=== PATIENT | male | born 1975 | race Caucasian/White ===

== ENCOUNTER 2016-10-05 19:41 | Inpatient (IN) | payer SELFPAY ==
[~2016-10-05] VITALS: Ht 185.4 cm; Wt 108.8 kg
[2016-10-05 19:42] VITALS: BP 123/75; PULSE 82; RESP 22; O2SAT 96
[2016-10-05 19:52] VITALS: BP 135/74; PULSE 94; RESP 18; TEMP 98.2; O2SAT 98
[2016-10-05] MEDS ORDERED: LACTATED RINGER'S 1000 ML INJ 1,000 ML IV SCH (19:53)
[2016-10-05 19:58] VITALS: O2SAT 97
[2016-10-05] MEDS ORDERED: DIPHTH/TETANUS/ACEL PERTUSSIS (BOOSTER) 0.5 ML VIAL/PFS IM ONE (20:00)
[2016-10-05] MEDS ORDERED: ONDANSETRON HCL 4 MG/2 ML VIAL IVP ONE (20:00)
[2016-10-05] MEDS ORDERED: ceFAZolin 2 GM PREMIX 50 ML IV ONE (20:00)
[2016-10-05] MEDS ORDERED: SODIUM CHLORIDE 0.9% FLUSH 10 ML FLUSH IVF PRN ×2 (20:00→22:00)
[2016-10-05] MEDS ORDERED: MORPHINE SULFATE 4 MG/ML INJ IV ONE (20:00)
--- NOTE | 2016-10-05 20:09 | PD ---
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 Patient reports that he landed on the parking block hitting the left side of his head and face. Patient complains of severe pain, 10/10, in the left temporal bone and skin facial bone area. Patient states he has pain with talking. Patient also complains of anterior chest wall pain and upper back pain. Patient states that he has had no alcohol to drink. Patient denies any chronic medical problems. Patient states he takes no medications on a daily basis. Patient has remote history of appendectomy. Patient does not know his tetanus status. Patient continues to complain of ongoing head pain. Patient's had no nausea or vomiting. Patient states that he is having difficulty seeing out of his left eye. Patient states that he does not wear corrective eyewear. Patient has left -sided neck pain but no posterior neck pain. Patient denies any abdominal pain. Patient denies any arm or leg numbness tingling or weakness. Patient does not report any history of preceding chest pain or shortness of breath prior to his fainting episode. It is unknown if he had any seizure activity although this was not reported by bystanders. Patient presents to the emergency department on long without bystanders/witnesses to provide further history. [facility] Past Medical History Narrative Medical Negative past medical history; appendectomy; tobacco use; nursing notes reviewed Diabetes: No Diminished Hearing: No Gastrointestinal Disorders: No Headaches: Yes Implanted Vascular Access Dvce: No Immunizations Current: Yes Migraines: Yes Ulcer: Yes (2000 GI BLEED) Past Surgical History Appendectomy: Yes Neurologic Surgery: No Other Surgery: No Social History Alcohol Use: Yes (Appx 16 beers daily) Tobacco Use: Yes (1 PPD) Substance Use: Yes (Marijuana, Cocaine, Synthetic Opiates) Allergies-Medications (Allergen,Severity, Reaction): Coded Allergies: No Known Allergies (Verified , 10/05/16) Comments Denies allergies to medications Reported Meds & Prescriptions Reported Meds & Active Scripts Active No Active Prescriptions or Reported Medications Narrative Medication Denies medication use Review of Systems Except as stated in HPI: all other systems reviewed are Neg General / Constitutional: No: Fever, Chills Eyes: Positive: Blurred Vision (left eye), Visual changes (affecting left eye) , No: Diploplia HENT: Positive: Headaches, Neck Pain Cardiovascular: Positive: Chest Pain or Discomfort Respiratory: No: Shortness of Breath Gastrointestinal: Positive: Abdominal Pain (left upper abdominal wall pain), No: Nausea, Vomiting Genitourinary: No: Pelvic Pain Musculoskeletal: No: Myalgias, Arthralgias, Weakness, Cramping, Pain Skin: No Rash Neurologic: Positive: Dizziness, Syncope, Headache, No: Weakness, Focal Abnormalities, Coordination Problem, Change in Mentation, Slurred Speech, Paresthesia, Seizures Psychiatric: No: Anxiety Hematologic/Lymphatic: No: Easy Bruising Physical Exam Narrative GENERAL: Well-developed well-nourished male in obvious discomfort moaning and yelling out holding his head stating that he has broken a bone in his skull or jaw. GCS 15. SKIN: Warm and dry. HEAD: Atraumatic. Normocephalic. Superficial abrasion to the left temporal region with tenderness to palpation and soft tissue swelling is noted. EYES: Pupils equal and round. No scleral icterus. No injection or drainage. Extraocular muscles are intact. No periorbital rim bony step-off or crepitus. ENT: No nasal bleeding or discharge. Mucous membranes pink and moist. Airway is patent. No malocclusion noted. NECK: Trachea midline. No JVD. Tender to palpation along the left posterior neck but no bony step-off or tenderness to palpation along the midline. CARDIOVASCULAR: Regular rate and rhythm. Chest wall left anterior chest wall mild tenderness to palpation without ecchymosis abrasion bony point tenderness or crepitus otherwise nontender. RESPIRATORY: No accessory muscle use. Clear to auscultation. Breath sounds equal bilaterally. GASTROINTESTINAL: Abdomen soft, non-tender, nondistended. Hepatic and splenic margins not palpable. MUSCULOSKELETAL: Extremities without clubbing, cyanosis, or edema. No obvious deformities. NEUROLOGICAL: Awake and alert. No obvious cranial nerve deficits except for complaint of blurriness affecting the left eye. Motor grossly within normal limits. Five out of 5 muscle strength in the arms and legs. Normal speech. PSYCHIATRIC: Appropriate mood and affect; insight and judgment normal. Data Data Last Documented VS Vital Signs Date Time Temp Pulse Resp B/P Pulse Ox O2 Delivery O2 Flow Rate FiO2 10/05/16 19:58 97 Room Air 10/05/16 19:52 98.2 94 18 135/74 Orders I-Stat Profile (10/05/16 19:53) I-Stat Creatinine (10/05/16 19:53) Complete Blood Count With Diff (10/05/16 19:53) Prothrombin Time / Inr (Pt) (10/05/16 19:53) Act Partial Throm Time (Ptt) (10/05/16 19:53) Type And Screen (10/05/16 19:53) Chest, Single Ap (10/05/16 19:53) Ct Brain W/O Iv Contrast(Rout) (10/05/16 19:53) Ct Cerv Spine W/O Contrast (10/05/16 19:53) Ct Abd/Pel W Iv Contrast(Rout) (10/05/16 19:53) Ct Thorax/ Chest W Iv Contrast (10/05/16 19:53) Ct Facial Bones W/O Iv Cont (10/05/16 19:53) Apply Cervical Collar (10/05/16 19:53) Iv Access Insert/Monitor (10/05/16 19:53) Ecg Monitoring (10/05/16 19:53) Oximetry (10/05/16 19:53) Oxygen Administration (10/05/16 19:53) Cefazolin 2 Gm Premix (Ancef 2 Gm Premix (10/05/16 20:00) Morphine Inj (Morphine Inj) (10/05/16 20:00) Ondansetron Inj (Zofran Inj) (10/05/16 20:00) Yrev-Axh-Yfkaeq (Booster) Inj (Boostrix (10/05/16 20:00) Lactated Ringer's 1000 Ml Inj (Lr 1000 M (10/05/16 19:53) Sodium Chloride 0.9% Flush (Ns Flush) (10/05/16 20:00) Electrocardiogram (10/05/16 ) Magnesium (Mg) (10/05/16 19:53) NPO (10/05/16 19:53) Alcohol (Ethanol) (10/05/16 19:53) Troponin I (10/05/16 20:37) Iohexol 350 Inj (Omnipaque 350 Inj) (10/05/16 20:51) Proparacaine 0.5% Opth Soln (Alcaine 0.5 (10/05/16 21:15) Labs Laboratory Tests Test 10/05/16 19:55 White Blood Count 11.6 TH/MM3 Red Blood Count 4.77 MIL/MM3 Hemoglobin 15.2 GM/DL Bedside Hemoglobin 15.3 G/DL Hematocrit 44.3 % Bedside Hematocrit 45.0 % Mean Corpuscular Volume 92.9 FL Mean Corpuscular Hemoglobin 32.0 PG Mean Corpuscular Hemoglobin 34.4 % Concent Red Cell Distribution Width 13.5 % Platelet Count 290 TH/MM3 Mean Platelet Volume 9.1 FL Neutrophils (%) (Auto) 61.5 % Lymphocytes (%) (Auto) 22.5 % Monocytes (%) (Auto) 6.4 % Eosinophils (%) (Auto) 9.1 % Basophils (%) (Auto) 0.5 % Neutrophils # (Auto) 7.1 TH/MM3 Lymphocytes # (Auto) 2.6 TH/MM3 Monocytes # (Auto) 0.7 TH/MM3 Eosinophils # (Auto) 1.1 TH/MM3 Basophils # (Auto) 0.1 TH/MM3 CBC Comment DIFF FINAL Differential Comment Prothrombin Time 10.2 SEC Prothromb Time International 0.9 RATIO Ratio Activated Partial 26.5 SEC Thromboplast Time Bedside Sodium 142 MMOL/L Bedside Potassium 4.5 MMOL/L Bedside Chloride 105 MMOL/L Bedside Blood Urea Nitrogen 15 MG/DL Bedside Creatinine 1.0 MG/DL Bedside Glucose 102 MG/DL Magnesium Level 2.5 MG/DL Ethyl Alcohol Level 141 MG/DL Blood Type O POSITIVE Antibody Screen NEGATIVE Blood Bank Comment [facility] Medical Decision Making Medical Screen Exam Complete: Yes Emergency Medical Condition: Yes Medical Record Reviewed: Yes Interpretation(s) EKG: Normal sinus rhythm rate [address] elevation or injury pattern change or ectopy noted I-STAT: Sodium 142; potassium 4.5; chloride 105: BUN 15/creatinine 1.0; glucose 142; hemoglobin 15.3/hematocrit 45% cxr: CONCLUSION: No acute abnormality demonstrated. Jr Colby MD on October 05, 2016 at 20:13 Board Certified Radiologist. This report was verified electronically. Differential Diagnosis Syncope, near-syncope, arrhythmia, ACS, [place], chest wall contusion, intrathoracic injury, skull fracture, ICH/epidural hematoma, cervical spine sprain strain contusion fracture cord injury, intra-abdominal visceral injury, alcohol ingestion Narrative Course Cervical collar applied patient placed on court monitor IV access obtained specimens collected and sent for resulting imaging studies ordered, GCS 15; EKG performed sinus rhythm rate of [address] elevation or injury pattern change noted; patient administered IV fluids along with tetanus status update and Zofran 4 mg IV along with morphine sulfate 4 mg IV for complaint of head pain jaw pain and neck pain. Chest x-ray performed no obvious displaced rib fracture pneumothorax or effusion also no contusion identified; patient has gone to CT for imaging. @ 20:47 patient has returned from CT; GCS 15, pain 8/10. Bilateral pupils equal round reactive to light extraocular muscles intact no fluorescein uptake no noted foreign body; visual acuity pending; discussed with Dr Stovall no need for trauma service; discussed with Dr Ivan will take to OR in the AM; call placed to [facility] service Physician Communication Physician Communication discussed with Dr Stovall; discussed with Dr Ivan clear liquid diet til MN npo after [place] OR in the AM; call placed to [facility] Diagnosis Primary Impression: Zygomatic fracture, left side, initial encounter for closed fracture Additional Impressions: Syncope Alcohol use Admitting Information Admitting Physician Requests: Admit Scripts No Active Prescriptions or Reported Meds Marilee Guerra MD Oct 05, 2016 20:09
[2016-10-05 20:10] LABS: I-STAT POTASSIUM 4.5 MMOL/L (3.5-4.9)
[2016-10-05 20:16] LABS: AUTOMATED NEUTROPHIL # 7.1 TH/MM3 (1.8-7.7); BASOPHIL # 0.1 TH/MM3 (0-0.2); BASOPHIL % 0.5 % (0.0-2.0); EOSINOPHIL # 1.1 TH/MM3 (0-0.4); EOSINOPHIL % 9.1 % (0.0-4.0); HEMATOCRIT 44.3 % (39.0-51.0); HEMO FLAGS DIFF FINAL; LYMPH % 22.5 % (9.0-44.0); LYMPHOCYTE # 2.6 TH/MM3 (1.0-4.8); MEAN CELL VOLUME 92.9 FL (80.0-100.0); MEAN CORPUSCULAR HGB CONC 34.4 % (32.0-36.0); MONO % 6.4 % (0.0-8.0); NEUT % 61.5 % (16.0-70.0); PLATELET COUNT 290 TH/MM3 (150-450); RED BLOOD COUNT 4.77 MIL/MM3 (4.50-5.90); RED CELL DISTRIBUTION WIDTH 13.5 % (11.6-17.2); WHITE BLOOD COUNT 11.6 TH/MM3 (4.0-11.0)
--- NOTE | 2016-10-05 20:17 | RADRPT ---
EXAM DATE/TIME: 10/05/2016 19:53 [facility] COMPARISON: No previous studies available for comparison. INDICATIONS : Chest pain. MEDICAL HISTORY : None. SURGICAL HISTORY : None. ENCOUNTER: Initial ACUITY: 1 day PAIN SCORE: 8/10 LOCATION: Bilateral chest FINDINGS: A single view of the chest demonstrates the lungs to be symmetrically aerated without evidence of mas s, infiltrate or effusion. The cardiomediastinal contours are unremarkable. Osseous structures are intact. CONCLUSION: No acute abnormality demonstrated. Jr Colby MD on October 05, 2016 at 20:13 Board Certified Radiologist. This report was verified electronically.
[2016-10-05 20:22] LABS: APTT (PATIENT) 26.5 SEC (24.3-30.1); INTERNATIONAL NORMALIZED RATIO 0.9 RATIO; PROTHROMBIN TIME - PATIENT 10.2 SEC (9.8-11.6)
[2016-10-05 20:31] LABS: MAGNESIUM 2.5 MG/DL (1.5-2.5)
--- NOTE | 2016-10-05 20:43 | RADRPT ---
EXAM DATE/TIME: 10/05/2016 20:22 [facility] COMPARISON: CT BRAIN W/O CONTRAST, September 16, 2013, 23:59. INDICATIONS : Trauma. Fall. left sided head pain. RADIATION DOSE: 66.57 CTDIvol (mGy) MEDICAL HISTORY : C7 fracture SURGICAL HISTORY : Appendectomy. ENCOUNTER: Initial ACUITY: 1 day PAIN SCALE: 10/10 LOCATION: Left cranial TECHNIQUE: Multiple contiguous axial images were obtained of the head. Using automated exposure control and adj ustment of the mA and/or kV according to patient size, radiation dose was kept as low as reasonably a chievable to obtain optimal diagnostic quality images. FINDINGS: CEREBRUM: The ventricles are normal for age. No evidence of midline shift, mass lesion, hemorrhage or acute in farction. No extra-axial fluid collections are seen. POSTERIOR FOSSA: The cerebellum and brainstem are intact. The 4th ventricle is midline. The cerebellopontine angle i s unremarkable. EXTRACRANIAL: The visualized portion of the orbits is intact. SKULL: The calvaria is intact. No evidence of skull fracture. CONCLUSION: Negative noncontrast head CT. Jr Colby MD on October 05, 2016 at 20:39 Board Certified Radiologist. This report was verified electronically.
--- NOTE | 2016-10-05 20:46 | RADRPT ---
EXAM DATE/TIME: 10/05/2016 20:22 [facility] COMPARISON: CT FACIAL BONES W/O CONTRAST, September 16, 2013, 23:59. INDICATIONS : Trauma. Fall. Left facial pain. RADIATION DOSE: 65.12 CTDIvol (mGy) MEDICAL HISTORY : C7 fracture, ETOH and substance abuse SURGICAL HISTORY : Appendectomy. ENCOUNTER: Initial ACUITY: 1 day PAIN SCORE: 8/10 LOCATION: facial TECHNIQUE: Volumetric scanning of the facial bones was performed. Using automated exposure control and adjustme nt of the mA and/or kV according to patient size, radiation dose was kept as low as reasonably achiev able to obtain optimal diagnostic quality images. FINDINGS: Acute comminuted fractures seen of the left zygomatic arch. There is buckling and associated 7 mm of depression of the midportion; as a result, the zygomatic arch focally contacts the ramus of the adjac ent left side of the mandible, series 7 image 33. The mandible is intact and non-subluxed. Other facial bones are intact. There is old, healed fracturing of the nose, displaced to the right. N o blood seen in the paranasal sinuses. CONCLUSION: Comminuted and buckled/depressed acute fracture of the left zygomatic arch as described above. Jr Colby MD on October 05, 2016 at 20:40 Board Certified Radiologist. This report was verified electronically.
--- NOTE | 2016-10-05 20:50 | RADRPT ---
EXAM DATE/TIME: 10/05/2016 20:22 [facility] COMPARISON: CT CERVICAL SPINE W/O CONTRAST, September 16, 2013, 23:59. INDICATIONS : Trauma; fall. RADIATION DOSE: 25.14 CTDIvol (mGy) MEDICAL HISTORY : ETOH and substance abuse; prior C 7 fracture SURGICAL HISTORY : None. ENCOUNTER: Initial ACUITY: 1 day PAIN SCALE: 5/10 LOCATION: neck TECHNIQUE: Volumetric scanning of the cervical spine was performed. Multiplanar reconstructions in the sagittal, coronal and oblique axial planes were performed. Using automated exposure control and adjustment o f the mA and/or kV according to patient size, radiation dose was kept as low as reasonably achievable to obtain optimal diagnostic quality images. FINDINGS: VERTEBRAE: Normal vertebral body height. ALIGNMENT: No evidence of subluxation. C2-C3: The bony spinal canal is normal in size. No evidence of disc bulge or herniation. The neural forami na are bilaterally patent. C3-C4: The bony spinal canal is normal in size. No evidence of disc bulge or herniation. The neural forami na are bilaterally patent. C4-C5: The bony spinal canal is normal in size. No evidence of disc bulge or herniation. The neural forami na are bilaterally patent. C5-C6: The bony spinal canal is normal in size. No evidence of disc bulge or herniation. The neural forami na are bilaterally patent. C6-C7: The bony spinal canal is normal in size. No evidence of disc bulge or herniation. The neural forami na are bilaterally patent. C7-T1: The bony spinal canal is normal in size. No evidence of disc bulge or herniation. The neural forami na are bilaterally patent. CONCLUSION: No fracture, subluxation or other acute abnormality seen of the cervical spine. Jr Colby MD on October 05, 2016 at 20:46 Board Certified Radiologist. This report was verified electronically.
[2016-10-05] MEDS ORDERED: IOHEXOL 350 MG/ML 10 ML VIAL (for RAD DIAG) IV ONE (20:51)
--- NOTE | 2016-10-05 20:57 | RADRPT ---
EXAM DATE/TIME: 10/05/2016 20:29 [facility] COMPARISON: No previous studies available for comparison. INDICATIONS : Trauma; fall IV CONTRAST: 96 cc Omnipaque 350 (iohexol) IV RADIATION DOSE: 19.57 CTDIvol (mGy) ; Combined studies - Thorax/Abdomen/Pelvis MEDICAL HISTORY : ETOH and substance abuse SURGICAL HISTORY : Appendectomy. ENCOUNTER: Initial ACUITY: 1 day PAIN SCALE: 5/10 LOCATION: chest TECHNIQUE: Volumetric scanning of the chest was performed. Using automated exposure control and adjustment of t he mA and/or kV according to patient size, radiation dose was kept as low as reasonably achievable to obtain optimal diagnostic quality images. FINDINGS: LUNGS: There is no consolidation or pneumothorax. No concerning pulmonary nodule is visualized. PLEURA: There is no pleural thickening or pleural effusion. MEDIASTINUM: The heart and great vessels demonstrate no acute abnormality. There is no mediastinal or hilar lymph adenopathy. AXILLAE: Within normal limits. No lymphadenopathy. SKELETAL: Visualized osseous structures are acutely intact. There is an old fracture posterolaterally of the ri ght 11th rib. MISCELLANEOUS: The visualized upper abdominal organs demonstrate no acute abnormality. CONCLUSION: No acute abnormality. Jr Colby MD on October 05, 2016 at 20:52 Board Certified Radiologist. This report was verified electronically.
--- NOTE | 2016-10-05 20:59 | RADRPT ---
EXAM DATE/TIME: 10/05/2016 20:29 [facility] COMPARISON: No previous studies available for comparison. INDICATIONS : Trauma. Fall. IV CONTRAST: 96 cc Omnipaque 350 (iohexol) IV ; Cumulative dose for multiple exams. ORAL CONTRAST: No oral contrast ingested. RADIATION DOSE: 19.57 CTDIvol (mGy) ; Combined studies - Thorax/Abdomen/Pelvis MEDICAL HISTORY : ETOH abuse C7 fracture SURGICAL HISTORY : Appendectomy. ENCOUNTER: Initial ACUITY: 1 day PAIN SCALE: 0/10 LOCATION: abdomen TECHNIQUE: Volumetric scanning of the abdomen and pelvis was performed. Using automated exposure control and ad justment of the mA and/or kV according to patient size, radiation dose was kept as low as reasonably achievable to obtain optimal diagnostic quality images. FINDINGS: LOWER LUNGS: The visualized lower lungs are clear. LIVER: Homogeneous density without lesion. There is no dilation of the biliary tree. No calcified gallston es. SPLEEN: Normal size without lesion. PANCREAS: Within normal limits. KIDNEYS: 11 mm cyst right upper pole. ADRENAL GLANDS: Within normal limits. VASCULAR: There is no aortic aneurysm. BOWEL/MESENTERY: The stomach, small bowel, and colon demonstrate no acute abnormality. There is no free intraperitone al air or fluid. ABDOMINAL WALL: Within normal limits. RETROPERITONEUM: There is no lymphadenopathy. BLADDER: No wall thickening or mass. REPRODUCTIVE: Within normal limits. INGUINAL: There is no lymphadenopathy or hernia. MUSCULOSKELETAL: Visualized osseous structures are intact. CONCLUSION: No acute abnormality. Jr Colby MD on October 05, 2016 at 20:55 Board Certified Radiologist. This report was verified electronically.
[2016-10-05] MEDS ORDERED: PROPARACAINE HCL 0.5% OPHT SOLN 15 ML BTL LEFT EYE ONE (21:15)
[2016-10-05] MEDS ORDERED: DEXAMETHASONE SOD PHOS 4 MG/ML VIAL IV PUSH ONE (21:45)
[2016-10-05] MEDS ORDERED: MORPHINE SULFATE 4 MG/ML INJ IV PUSH ONE (21:45)
[2016-10-05] MEDS ORDERED: BISACODYL 10 MG SUPP RECTAL PRN (22:00)
[2016-10-05] MEDS ORDERED: SENNOSIDES 8.6 MG TAB PO PRN (22:00)
[2016-10-05] MEDS ORDERED: MAGNESIUM HYDROXIDE SUSP 30 ML CUP PO PRN (22:00)
[2016-10-05] MEDS ORDERED: MORPHINE SULFATE 4 MG/ML INJ IV PRN (22:00)
[2016-10-05] MEDS ORDERED: HALOPERIDOL LACTATE 5 MG/ML AMP IM PRN (22:00)
[2016-10-05] MEDS ORDERED: ACETAMINOPHEN 1000 MG/100 ML VIAL IV PRN (22:00)
[2016-10-05] MEDS ORDERED: LORazepam 2 MG/ML VIAL IV PUSH PRN ×4 (22:00)
[2016-10-05] MEDS ORDERED: LORazepam 1 MG TAB PO PRN (22:00)
[2016-10-05] MEDS ORDERED: LORazepam 2 MG TAB PO PRN (22:00)
[2016-10-05] MEDS ORDERED: FLUMAZENIL 0.5 MG/5 ML VIAL IV PUSH PRN (22:00)
[2016-10-05] MEDS ORDERED: LACTULOSE SYRUP 20 GM/30 ML CUP PO PRN (22:00)
[2016-10-05] MEDS ORDERED: SODIUM CHLORIDE 0.9% FLUSH 10 ML FLUSH IV FLUSH PRN (22:00)
--- NOTE | 2016-10-05 22:03 | HHI.HP ---
[facility] Primary Care Physician Admission Diagnosis L comminuted zygoma fracture; syncope; alcohol use Diagnoses: (1) Syncope Diagnosis: Principal (2) Fall Diagnosis: Principal (3) Facial fracture Diagnosis: Principal (4) Alcohol abuse (5) Tobacco abuse Diagnosis: Principal Travel History International Travel<30 Days: No Contact w/Intl Traveler <30 Da: No Traveled to Known Affected Are: No History of Present Illness This is a 41-year-old male with a PMH of Alcohol Abuse, Tobacco Abuse and Cocaine Abuse was brought to the ER by EMS after syncopal episode with head trauma. Per patient, he was getting into his boss's truck at which time he had sudden onset of dizziness/lightheadedness followed by acute syncopal event, + head injury on parking block. No seizure activity reported. Upon EMS arrival, pt found to be awake and alert. On arrival, BP 135/74, HR 94, O2 sat 98% RA, Afebrile. WBC 11.6. Chemistry unremarkable. Troponin negative. INR 0.9. Alcohol 141. CT Head/C Spine with no acute findings. CT Maxillofacial with comminuted and buccal/depressed acute fracture of the left zygomatic arch. CXR/ CT Chest/Abd/Pelvis w/ no acute findings. Dr. Ivan consulted, plan is for surgical intervention in am. Review of Systems Except as stated in HPI: all other systems reviewed are Neg ROS: 14 point review of systems otherwise negative. Past Family Social History Past Medical History PMH: Alcohol Abuse, Tobacco Abuse and Cocaine Abuse Past Surgical History PAST SURGICAL HISTORY: Appendectomy Allergies: Coded Allergies: No Known Allergies (Verified , 10/05/16) Family History PAST FAMILY HISTORY: Reviewed. No h/o DM or CAD Social History PAST SOCIAL HISTORY: Drinks 16-18 beers/day. Smokes 1ppd. Positive for Opiates, Marijuana and Cocaine. Physical Exam Vital Signs Vital Signs Date Time Temp Pulse Resp B/P Pulse Ox O2 Delivery O2 Flow Rate FiO2 10/05/16 19:58 97 Room Air 10/05/16 19:58 97 Room Air 10/05/16 19:52 98.2 94 18 135/74 98 10/05/16 19:42 82 22 123/75 96 Room Air Physical Exam PE: GENERAL: Middle-aged white male in no acute distress. HEENT: PERRLA, EOMI. No scleral icterus or conjunctival pallor. No lid lag or facial droop. Left facial swelling, significant tenderness with movement of jaw CARDIOVASCULAR: Regular rate and rhythm. No obvious murmurs to auscultation. No chest tenderness to palpation. RESPIRATORY: No obvious rhonchi or wheezing. Clear to auscultation. Breath sounds equal bilaterally. GASTROINTESTINAL: Abdomen soft, non-tender, nondistended. BS normal. MUSCULOSKELETAL: Extremities without clubbing, cyanosis, or edema. No obvious deformities. NEUROLOGICAL: Awake, alert and oriented x4. No focal neurologic deficits. Moving both upper and lower extremities spontaneously. Laboratory Laboratory Tests Test 10/05/16 19:55 White Blood Count 11.6 Red Blood Count 4.77 Hemoglobin 15.2 Bedside Hemoglobin 15.3 Hematocrit 44.3 Bedside Hematocrit 45.0 Mean Corpuscular Volume 92.9 Mean Corpuscular Hemoglobin 32.0 Mean Corpuscular Hemoglobin 34.4 Concent Red Cell Distribution Width 13.5 Platelet Count 290 Mean Platelet Volume 9.1 Neutrophils (%) (Auto) 61.5 Lymphocytes (%) (Auto) 22.5 Monocytes (%) (Auto) 6.4 Eosinophils (%) (Auto) 9.1 Basophils (%) (Auto) 0.5 Neutrophils # (Auto) 7.1 Lymphocytes # (Auto) 2.6 Monocytes # (Auto) 0.7 Eosinophils # (Auto) 1.1 Basophils # (Auto) 0.1 CBC Comment DIFF FINAL Differential Comment Prothrombin Time 10.2 Prothromb Time International 0.9 Ratio Activated Partial 26.5 Thromboplast Time Bedside Sodium 142 Bedside Potassium 4.5 Bedside Chloride 105 Bedside Blood Urea Nitrogen 15 Bedside Creatinine 1.0 Bedside Glucose 102 Magnesium Level 2.5 Ethyl Alcohol Level 141 Blood Type O POSITIVE Antibody Screen NEGATIVE Blood Bank Comment Result Diagram: 10/05/161954 Assessment and Plan Problem List: (1) Syncope ICD Code: R55 Status: Acute (2) Fall ICD Code: W19.XXXA Status: Acute (3) Facial fracture ICD Code: S02.92XA Status: Acute (4) Alcohol abuse ICD Code: F10.10 Status: Acute (5) Tobacco abuse ICD Code: Z72.0 Status: Acute Assessment and Plan A/P: 1. Syncope: Likely secondary to dehydration/alcohol intoxication. IVF for hydration. 2. Fall: secondary to acute syncopal event. +Head trauma, CT Head/C-Spine negative for acute findings, CT Chest/Abd/Pelvis also negative, images reviewed by me. IVF as above. 3. Facial Fx: CT Maxillofacial w/ comminuted/depressed fracture of left zygomatic arch, images reviewed by me, limited ROM of jaw secondary to injury. Dr. Ivan consulted by ER physician, plan is for surgical intervention in am. Clear liquids if tolerated, NPO after midnight, analgesics/antiemetics as needed. 4. Alcohol Abuse: w/ Acute Alcohol Intoxication. Drinks approx 16-18 beers/ day. CIWA, MVT/Thiamine/Folate replacement, Seizure Precautions. 5. Tobacco Abuse: Pt counselled. NicoDerm patch if needed. 6. DVT Prophylaxis: SCD/Teds. 7. Social work for d/c planning as needed. 8. Case discussed w/ ER physician at length. Physician Certification 2 Midnight Certification Type: Admission for Inpatient Services Order for Inpatient Services The services are ordered in accordance with Medicare regulations or non- Medicare payer requirements, as applicable. In the case of services not specified as inpatient-only, they are appropriately provided as inpatient services in accordance with the 2-midnight benchmark. Estimated LOS (days): 2 days is the estimated time the patient will need to remain in the hospital, assuming treatment plan goals are met and no additional complications. Post-Hospital Plan: Not yet determined Jody Mccormack MD Oct 05, 2016 22:03
[2016-10-05] MEDS: MULTIVITAMIN INJ 10 ML, FOLIC ACID INJ 1 MG in SODIUM CHLORID 0.9% 500 ML INJ 500 ML IV SCH (22:29)
[2016-10-05] MEDS: THIAMINE INJ 100 MG in SODIUM CHLORIDE 0.9% INJ 100 ML IV SCH (22:29)
[2016-10-05] MEDS: SODIUM CHLOR 0.9% 1000 ML INJ 1,000 ML IV SCH (22:29)
[2016-10-05 22:46] VITALS: BP 136/67; PULSE 67; RESP 16; O2SAT 98
[2016-10-05 23:15] VITALS: BP 148/69; PULSE 80; RESP 17; TEMP 98.7; O2SAT 95
[2016-10-05] MEDS ORDERED: INSULIN HUMAN REGULAR 1,000 UNITS/10 ML VIAL SQ PRN (23:45)
[2016-10-05] MEDS ORDERED: SODIUM CHLORID 0.9% 500 ML IV PRN (23:45)
[2016-10-05] MEDS ORDERED: METOPROLOL TARTRATE 25 MG TAB PO PRN (23:45)
[2016-10-05] MEDS ORDERED: POVIDONE IODINE 5% (ANTISEPSIS KIT) 4 APPLICATIONS EACH NARE PRN (23:45)
[2016-10-05] MEDS ORDERED: LACTATED RINGER'S 1000 ML IV PRN (23:45)
[2016-10-05] MEDS ORDERED: CHLORHEXIDINE GLUCONATE 2 % 1 PACK (2 CLOTHS) TOPICAL PRN (23:45)
[2016-10-06] MEDS: MORPHINE SULFATE 4 MG/ML INJ IV PRN ×2 (00:55→04:33)
[2016-10-06 04:20] VITALS: BP 133/72; PULSE 62; RESP 17; TEMP 97; O2SAT 98
[2016-10-06 04:53] LABS: AMPHETAMINE, URINE NEG (NEG); BARBITURATES, URINE NEG (NEG); COCAINE, URINE POS (NEG)
[2016-10-06] MEDS: SODIUM CHLOR 0.9% 1000 ML INJ 1,000 ML IV SCH ×2 (07:59→17:59)
[2016-10-06 08:00] VITALS: BP 143/74; PULSE 54; RESP 18; TEMP 95.8; O2SAT 99
[2016-10-06 08:47] VITALS: O2SAT 95
[2016-10-06] MEDS ORDERED: SODIUM CHLORIDE 0.9% FLUSH 10 ML FLUSH IV FLUSH SCH (09:00)
[2016-10-06] MEDS: DOCUSATE SODIUM 50 MG/SENNA 8.6 MG TAB PO SCH ×2 (09:00→20:40)
[2016-10-06] MEDS: SODIUM CHLORIDE 0.9% FLUSH 10 ML FLUSH IV FLUSH SCH ×2 (09:39→20:40)
[2016-10-06] MEDS ORDERED: PROPOFOL 200 MG/20 ML AMP IV ONE (09:47)
[2016-10-06] MEDS ORDERED: KETOROLAC TROMETHAMINE 60 MG/2 ML (IM) VIAL IM ONE (09:47)
[2016-10-06] MEDS ORDERED: ONDANSETRON HCL 4 MG/2 ML VIAL IV PUSH ONE (09:47)
[2016-10-06] MEDS ORDERED: MORPHINE SULFATE 4 MG/ML INJ IV PRN ×2 (10:00)
--- NOTE | 2016-10-06 10:15 | MB ---
cc: ARTEMIO IVAN DMD DATE OF CONSULTATION: 10/06/2016 REASON FOR CONSULTATION: Left zygomatic arch fracture. 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 He reports that he did not drink much fluids the whole day and then in the evening when he was going back to his vehicle, he had a syncopal episode and fell, hit his face on the side of the curb. He was alert, awake, and oriented x3 in no acute distress. He reports pain on the left side of his face. He points to the arch region, difficulty opening and closing his mouth at that point. He denies any neck pain. Denies any headaches. Denies any fever, chills, nausea, vomiting, any shortness of breath, any difficulty breathing. He reports he felt a little bit lightheaded and then he blacked out and then he woke up and was aware of what was happening. SOCIAL HISTORY: Denies alcohol use, tobacco or any illicit drug use, although I did question him based on his previous note, of cocaine and drugs. He denies. PAST SURGICAL HISTORY Appendectomy. ALLERGIES Denied. PHYSICAL EXAMINATION: Vitals: Temperature 95.8, pulse is 54, respiration rate 18, blood pressure 143/74, oxygen saturation of 99%. HEENT: Pupils equal round reactive to light and accommodation. Extraocular movements are intact. There is bruising and tenderness over the left zygomatic arch region. There is a depression that is noted on the left side of the face in that region. Tenderness to palpation. Mild facial edema that is noted on the left greater than the right. No active heme that is noted. I tried to examine intraorally, the patient is having discomfort opening his mouth and not conducive to being able to be examined at this point. Neck: Positive range of movement of the neck. No tenderness noted. The rest of the facial bones nasal bones appear stable. No crepitus. No gross tenderness noted except for the left side of the face arch region, tenderness noted. IMAGING STUDIES: CT scan of the facial bones shows it appears to show a depressed left zygomatic arch fracture impinging on the coronoid process of the left mandible, also appears to have fracture which is on the left side which is not displaced, appears to have an old nasal bone fracture. LABORATORY DATA: White count of 11.6, H&H is 15.2, 44.3 with platelets of 290, PT is 10.2, INR 0.9 with PTT of 26.5, ethyl alcohol is 141, positive use of cocaine and opioids. ASSESSMENT AND PLAN: This is a 41-year-old male status post having a syncopal episode as per the patient working the whole day dehydrated, working in the hot sun, and then lost consciousness momentarily. He has a displaced zygomatic arch fracture, impinging on his coronoid process, severe pain on the left side of the face region of the arch, could be causing involvement of the movement of the mandible. Will plan for open reduction of his left-sided zygomatic arch fracture. Benefits, risks, indication of the procedure, the procedure in detail and the options of no treatment all discussed with this patient. Risks not limited to any postop pain, infection, bleeding, damage to the adjacent soft tissue, hard tissue, anesthesia complications, further surgeries as required. The procedure in detail was also discussed. All questions and concerns were addressed. Also note that on his labs the troponin is less than 0.02. Artemio Ivan DMD HEALTH COACH/DARLEEN /9:17 AM /9:50 AM
--- NOTE | 2016-10-06 10:19 | HHI.PR ---
Subjective Remarks Surgical repair of facial fracture today. Patient reports IV treatments for his pain or not long lasting. We discussed starting by mouth treatments after surgery. Right now he is not taking anything by mouth preop. Objective Vital Signs Date Time Temp Pulse Resp B/P Pulse Ox O2 Delivery O2 Flow Rate FiO2 10/06/16 08:00 95.8 54 18 143/74 99 10/06/16 04:20 97.0 62 17 133/72 98 10/05/16 23:15 98.7 80 17 148/69 95 10/05/16 22:46 67 16 136/67 98 Room Air 10/05/16 19:58 97 Room Air 10/05/16 19:58 97 Room Air 10/05/16 19:52 98.2 94 18 135/74 98 10/05/16 19:42 82 22 123/75 96 Room Air I/O 10/05/16 10/05/16 10/05/16 10/06/16 10/06/16 10/06/16 07:00 15:00 23:00 07:00 15:00 23:00 Intake Total 496 ml Output Total 1000 ml Balance -504 ml Intake Oral 0 ml IV Total 496 ml Output Urine Total 1000 ml # Bowel Movements 0 Result Diagram: 10/05/161954 Imaging Last Impressions Maxillofacial CT 10/05/161952 Signed Impressions: Service Date/Time: Wednesday, October 05, 2016 20:22 - CONCLUSION: Comminuted and buckled/depressed acute fracture of the left zygomatic arch as described above. Jr Colby MD Head CT 10/05/161952 Signed Impressions: Service Date/Time: Wednesday, October 05, 2016 20:22 - CONCLUSION: Negative noncontrast head CT. Jr Colby MD Chest X-Ray 10/05/161952 Signed Impressions: Service Date/Time: Wednesday, October 05, 2016 19:53 - CONCLUSION: No acute abnormality demonstrated. Jr Colby MD Chest CT 10/05/161952 Signed Impressions: Service Date/Time: Wednesday, October 05, 2016 20:29 - CONCLUSION: No acute abnormality. Jr Colby MD Cervical Spine CT 10/05/161952 Signed Impressions: Service Date/Time: Wednesday, October 05, 2016 20:22 - CONCLUSION: No fracture, subluxation or other acute abnormality seen of the cervical spine. Jr Colby MD Abdomen/Pelvis CT 10/05/161952 Signed Impressions: Service Date/Time: Wednesday, October 05, 2016 20:29 - CONCLUSION: No acute abnormality. Jr Colby MD Objective Remarks GENERAL: NAD, A&Ox3 HEAD: Normocephalic. Swelling of left side of face NECK: Supple, trachea midline. No lymphadenopathy. EYES: No scleral icterus. No injection or drainage. CARDIOVASCULAR: Regular rate and rhythm without murmurs, gallops, or rubs. RESPIRATORY: Breath sounds equal bilaterally. No accessory muscle use. GASTROINTESTINAL: Abdomen soft, non-tender, nondistended. MUSCULOSKELETAL: No cyanosis, or edema. SKIN: Warm and dry. NEURO: No focal neurological deficitis. Medications and IVs Administered Medications Medications (Trade) Dose Ordered Sig/Maurice Route PRN Reason Start Time Stop Time Status Last Admin Dose Admin Sodium Chloride (NS 1000 ml Inj) 1,000 ml @ 100 mls/hr Q10H IV 10/05/16 21:59 10/05/16 22:29 Sodium Chloride 2 ml 2 ml BID IV FLUSH 10/06/16 09:00 10/06/16 09:39 Multivitamins 10 ml/Folic Acid 1 mg/Sodium Chloride 510.2 ml @ 125 mls/hr Q24H IV 10/05/16 22:00 10/10/16 21:59 10/05/16 22:29 Thiamine HCl/ Sodium Chloride (Thiamine Inj/NS Inj) 101 ml @ 100 mls/hr Q24H IV 10/05/16 22:00 10/08/16 21:59 10/05/16 22:29 Morphine Sulfate (Morphine Inj) 4 mg Q3H PRN IV Pain 6-10 10/06/16 10:00 10/06/16 09:37 A/P Problem List: (1) Zygomatic fracture, left side, initial encounter for closedfracture ICD Code: S02.40FA (2) Syncope ICD Code: R55 (3) Facial fracture ICD Code: S02.92XA (4) Alcohol abuse ICD Code: F10.10 (5) Tobacco abuse ICD Code: Z72.0 Assessment and Plan Assessment and plan 41-year-old male status post trauma secondary to fall of his left face with zygomatic fracture. Left zygomatic fracture Surgical repair today Oral-maxillofacial surgeon following Continue treatments for pain as needed continue IV hydration Syncope Suspected to be secondary to substance abuse Assessment ambulation instability postop IV hydration Nicotine dependence NicoDerm Alcohol abuse Elizabeth continue Multivitamin Thiamine Folic acid Follow for DTs DVT prophylaxis SCDs secondary to bleed risk Jose Diallo MD Oct 06, 2016 10:19
[2016-10-06 10:23] LABS: AUTOMATED NEUTROPHIL # 5.2 TH/MM3 (1.8-7.7); BASOPHIL % 0.2 % (0.0-2.0); HEMATOCRIT 41.3 % (39.0-51.0); HEMO FLAGS DIFF FINAL; LYMPH % 16.4 % (9.0-44.0); LYMPHOCYTE # 1.1 TH/MM3 (1.0-4.8); MEAN CELL VOLUME 93.6 FL (80.0-100.0); MEAN CORPUSCULAR HEMOGLOBIN 32.1 PG (27.0-34.0); MEAN CORPUSCULAR HGB CONC 34.3 % (32.0-36.0); MONO % 2.6 % (0.0-8.0); NEUT % 80.8 % (16.0-70.0); PLATELET COUNT 229 TH/MM3 (150-450); RED BLOOD COUNT 4.41 MIL/MM3 (4.50-5.90); RED CELL DISTRIBUTION WIDTH 13.4 % (11.6-17.2); WHITE BLOOD COUNT 6.5 TH/MM3 (4.0-11.0)
[2016-10-06 10:49] LABS: ANION GAP 11 MEQ/L (5-15); AST (GOT) 22 U/L (15-37); BICARBONATE 23.1 MEQ/L (21.0-32.0); BLOOD UREA NITROGEN 13 MG/DL (7-18); CHLORIDE 105 MEQ/L (98-107); GLOMERULAR FILTRATION RATE 129 ML/MIN (>89); SODIUM (NA) 139 MEQ/L (136-145)
[2016-10-06 10:50] LABS: ALT (GPT) 36 U/L (12-78)
[2016-10-06 10:53] LABS: ALKALINE PHOSPHATASE 86 U/L (45-117); TOTAL BILIRUBIN ADULT 0.5 MG/DL (0.2-1.0)
[2016-10-06] MEDS: oxyCODONE/ACETAMINOPHEN 10 MG/325 MG TAB PO PRN ×2 (11:48→20:48)
[2016-10-06] MEDS: ONDANSETRON HCL 4 MG/2 ML VIAL IVP PRN ×2 (11:57→20:48)
[2016-10-06 12:00] VITALS: BP 131/78; PULSE 51; RESP 18; TEMP 95.5; O2SAT 98
--- NOTE | 2016-10-06 12:19 | EKG ---
Date Performed: 10/05/2016 Time Performed: 19:57:54 PTAGE: 41 years EKG: Sinus rhythm NORMAL ECG PREVIOUS TRACING : 03/08/2007 03.13 Compared to prior tracing no significant change DOCTOR: Silvano Reed Interpretating Date/Time 10/06/2016 12:17:08
[2016-10-06] MEDS ORDERED: ceFAZolin INJ 1,000 MG VIAL ONE (16:42)
[2016-10-06] MEDS ORDERED: CHLORHEXIDINE GLUCONATE 0.12% 15 ML CUP ONE (16:42)
[2016-10-06] MEDS ORDERED: BUPIVACAINE HCL PF 0.5% 30 ML VIAL ONE (16:42)
[2016-10-06] MEDS ORDERED: LIDOCAINE 2%/EPINEPHrine 1:100,000 30ML MDV ONE (16:46)
[2016-10-06] MEDS ORDERED: BUPIVACAINE/EPINEPHRINE 0.5% PF 30 ML VIAL ONE (17:29)
[2016-10-06] MEDS ORDERED: SUGAMMADEX SODIUM 200 MG/2 ML VIAL IV PUSH ONE ×2 (17:49)
[2016-10-06] MEDS ORDERED: methylPREDNISolone SOD SUCC 125 MG/2 ML VIAL IV ONE (18:00)
--- NOTE | 2016-10-06 18:05 | HHI.PR ---
Immediate Post Op Note Procedure Date: Oct 06, 2016 Pre Op Diagnosis: left zygomatic arch fracture Post Op Diagnosis: taiwo Surgeon: Kyle Ivan Boiler Fitter(s): or staff Procedure: open reduction left zygomatic arch fracture Complications: none Estimated blood loss: minimal Anesthesia: General, Local (2%lidocaine with 1:100,000 epi 3cc; 0.5%marcaine with 1:200, 000 epi approx 2 cc) Drains: None Patient to: PACU Patient Condition: Good Date/Time of Procedure: SEE SURGICAL CARE RECORD Kyle Ivan DMD Oct 06, 2016 18:05
[2016-10-06] MEDS ORDERED: MORPHINE SULFATE 4 MG/ML INJ ONE (18:15)
[2016-10-06] MEDS ORDERED: MIDAZOLAM HCL 2 MG/2 ML VIAL ONE (18:16)
[2016-10-06] MEDS ORDERED: methylPREDNISolone SOD SUCC 125 MG/2 ML VIAL ONE (18:20)
[2016-10-06] MEDS ORDERED: DO NOT ADM ANY ANTICOAGULANT DRUGS PRN (18:45)
[2016-10-06 20:00] VITALS: BP 147/78; PULSE 66; RESP 18; TEMP 96; O2SAT 97
[2016-10-06] MEDS: THIAMINE INJ 100 MG in SODIUM CHLORIDE 0.9% INJ 100 ML IV SCH (20:38)
[2016-10-06] MEDS: MULTIVITAMIN INJ 10 ML, FOLIC ACID INJ 1 MG in SODIUM CHLORID 0.9% 500 ML INJ 500 ML IV SCH (20:39)
[2016-10-06 21:37] VITALS: O2SAT 98
[2016-10-07] VITALS (7 sets, daily range): BP systolic 108–144; BP diastolic 67–88; PULSE 50–59; RESP 14–18; TEMP 95.7–97; O2SAT 97–99
[2016-10-07] MEDS ORDERED: methylPREDNISolone SOD SUCC 125 MG/2 ML VIAL IV ONE
[2016-10-07] MEDS ORDERED: methylPREDNISolone ACETATE 80 MG/ML VIAL IM ONE (01:00)
[2016-10-07] MEDS: SODIUM CHLOR 0.9% 1000 ML INJ 1,000 ML IV SCH ×2 (03:59→13:59)
[2016-10-07] MEDS: ONDANSETRON HCL 4 MG/2 ML VIAL IVP PRN ×2 (05:24→22:08)
[2016-10-07] MEDS: oxyCODONE/ACETAMINOPHEN 10 MG/325 MG TAB PO PRN ×5 (05:24→22:04)
[2016-10-07 06:41] LABS: HEMATOCRIT 39.7 % (39.0-51.0); MEAN CELL VOLUME 93.3 FL (80.0-100.0); MEAN CORPUSCULAR HEMOGLOBIN 32.3 PG (27.0-34.0); MEAN CORPUSCULAR HGB CONC 34.6 % (32.0-36.0); PLATELET COUNT 208 TH/MM3 (150-450); RED BLOOD COUNT 4.25 MIL/MM3 (4.50-5.90); RED CELL DISTRIBUTION WIDTH 12.9 % (11.6-17.2); REVIEW FLAG FINAL; WHITE BLOOD COUNT 10.8 TH/MM3 (4.0-11.0)
[2016-10-07 06:45] LABS: BICARBONATE 24.9 MEQ/L (21.0-32.0); POTASSIUM 4.2 MEQ/L (3.5-5.1)
[2016-10-07] MEDS: SODIUM CHLORIDE 0.9% FLUSH 10 ML FLUSH IV FLUSH SCH ×2 (09:00→20:48)
--- NOTE | 2016-10-07 09:14 | HHI.PR ---
Subjective Remarks This is a pleasant 41 y/o Male with alcohol abuse, Tobacco dependence, Cocaine abuse, brought to ER after episode of syncope and Head trauma, he had sudden onset of dizziness/lightheadedness followed by acute syncopal event, +head injury on parking block. No seizure activity reported. CT Head/C Spine with no acute findings. CT Maxillofacial with comminuted and buccal/depressed acute fracture of the left zygomatic arch. CXR/ CT Chest/Abd/Pelvis w/ no acute findings. Status post ORIF of Left Zygomatic Arch fracture on September with Diagnosis of Left Zygomatic Arch fracture. Continue with Pain and no nausea, vomit or diarrhea. Objective Vital Signs Date Time Temp Pulse Resp B/P Pulse Ox O2 Delivery O2 Flow Rate FiO2 10/07/16 08:00 95.8 50 16 144/83 99 10/07/16 04:00 96.6 53 18 108/67 99 10/07/16 00:00 97.0 52 18 116/69 98 10/06/16 21:37 98 Nasal Cannula 4.00 10/06/16 20:00 96.0 66 18 147/78 97 10/06/16 18:30 98.2 53 14 136/71 100 Nasal Cannula 2 10/06/16 18:15 57 14 158/85 100 Nasal Cannula 3 10/06/16 18:05 98.2 60 14 154/87 100 Nasal Cannula 4 10/06/16 12:00 95.5 51 18 131/78 98 I/O 10/06/16 10/06/16 10/06/16 10/07/16 10/07/16 10/07/16 07:00 15:00 23:00 07:00 15:00 23:00 Intake Total 496 ml 2300 ml 1000 ml Output Total 1000 ml 1210 ml 700 ml Balance -504 ml 1090 ml 300 ml Intake Oral 0 ml 1600 ml 1000 ml IV Total 496 ml Other 700 ml Output Urine Total 1000 ml 1200 ml 700 ml Estimated Blood Loss 10 ml # Bowel Movements 0 1 1 Result Diagram: 10/07/16 0528 10/07/16 0528 Imaging Last Impressions Maxillofacial CT 10/05/161952 Signed Impressions: Service Date/Time: Wednesday, October 05, 2016 20:22 - CONCLUSION: Comminuted and buckled/depressed acute fracture of the left zygomatic arch as described above. Jr Colby MD Head CT 10/05/161952 Signed Impressions: Service Date/Time: Wednesday, October 05, 2016 20:22 - CONCLUSION: Negative noncontrast head CT. Jr Colby MD Chest X-Ray 10/05/161952 Signed Impressions: Service Date/Time: Wednesday, October 05, 2016 19:53 - CONCLUSION: No acute abnormality demonstrated. Jr Colby MD Chest CT 10/05/161952 Signed Impressions: Service Date/Time: Wednesday, October 05, 2016 20:29 - CONCLUSION: No acute abnormality. Jr Colby MD Cervical Spine CT 10/05/161952 Signed Impressions: Service Date/Time: Wednesday, October 05, 2016 20:22 - CONCLUSION: No fracture, subluxation or other acute abnormality seen of the cervical spine. Jr Colby MD Abdomen/Pelvis CT 10/05/161952 Signed Impressions: Service Date/Time: Wednesday, October 05, 2016 20:29 - CONCLUSION: No acute abnormality. Jr Colby MD Procedures Status post ORIF of Left Zygomatic Arch fracture on September with Diagnosis of Left Zygomatic Arch fracture. Other Results Laboratory Tests Test 10/05/16 10/06/16 10/06/16 10/07/16 19:55 04:30 09:49 05:28 Bedside Hemoglobin 15.3 G/DL Bedside Hematocrit 45.0 % Prothrombin Time 10.2 SEC Prothromb Time International 0.9 RATIO Ratio Activated Partial 26.5 SEC Thromboplast Time Bedside Sodium 142 MMOL/L Bedside Potassium 4.5 MMOL/L Bedside Chloride 105 MMOL/L Bedside Blood Urea Nitrogen 15 MG/DL Bedside Creatinine 1.0 MG/DL Bedside Glucose 102 MG/DL Magnesium Level 2.5 MG/DL Ethyl Alcohol Level 141 MG/DL Blood Type O POSITIVE Antibody Screen NEGATIVE Blood Bank Comment Troponin I LESS THAN 0.02 NG/ML Urine Opiates Screen POS Urine Barbiturates Screen NEG Urine Amphetamines Screen NEG Urine Benzodiazepines Screen NEG Urine Cocaine Screen POS Urine Cannabinoids Screen NEG Neutrophils (%) (Auto) 80.8 % Lymphocytes (%) (Auto) 16.4 % Monocytes (%) (Auto) 2.6 % Eosinophils (%) (Auto) 0.0 % Basophils (%) (Auto) 0.2 % Neutrophils # (Auto) 5.2 TH/MM3 Lymphocytes # (Auto) 1.1 TH/MM3 Monocytes # (Auto) 0.2 TH/MM3 Eosinophils # (Auto) 0.0 TH/MM3 Basophils # (Auto) 0.0 TH/MM3 CBC Comment DIFF FINAL Differential Comment Total Bilirubin 0.5 MG/DL Aspartate Amino Transf 22 U/L (AST/SGOT) Alanine Aminotransferase 36 U/L (ALT/SGPT) Alkaline Phosphatase 86 U/L Total Protein 6.8 GM/DL Albumin 3.4 GM/DL White Blood Count 10.8 TH/MM3 Red Blood Count 4.25 MIL/MM3 Hemoglobin 13.7 GM/DL Hematocrit 39.7 % Mean Corpuscular Volume 93.3 FL Mean Corpuscular Hemoglobin 32.3 PG Mean Corpuscular Hemoglobin 34.6 % Concent Red Cell Distribution Width 12.9 % Platelet Count 208 TH/MM3 Mean Platelet Volume 9.6 FL Sodium Level 141 MEQ/L Potassium Level 4.2 MEQ/L Chloride Level 109 MEQ/L Carbon Dioxide Level 24.9 MEQ/L Anion Gap 7 MEQ/L Blood Urea Nitrogen 15 MG/DL Creatinine 0.67 MG/DL Estimat Glomerular Filtration 131 ML/MIN Rate Random Glucose 153 MG/DL Calcium Level 7.9 MG/DL Objective Remarks GENERAL: NAD, A&Ox3 HEAD: Normocephalic. Swelling of left side of face, left facial splint NECK: Supple, trachea midline. No lymphadenopathy. EYES: No scleral icterus. No injection or drainage. CARDIOVASCULAR: Regular rate and rhythm without murmurs, gallops, or rubs. RESPIRATORY: Breath sounds equal bilaterally. No accessory muscle use. GASTROINTESTINAL: Abdomen soft, non-tender, nondistended. MUSCULOSKELETAL: No cyanosis, or edema. SKIN: Warm and dry. NEURO: No focal neurological deficits. Medications and IVs Current Medications Medications (Trade) Dose Ordered Sig/Maurice Route Start Time Stop Time Status Last Admin (NS 1000 ml Inj) 1,000 ml @ 100 mls/hr Q10H IV 10/05/16 21:59 10/05/16 22:29 (NS Flush) 2 ml UNSCH PRN IV FLUSH 10/05/16 22:00 (NS Flush) 2 ml BID IV FLUSH 10/06/16 09:00 10/06/16 09:39 (Zofran Inj) 4 mg Q6H PRN IVP 10/05/16 22:00 10/07/16 05:24 (Rebecca-Colace) 1 tab BID PO 10/06/16 09:00 10/06/16 20:40 (Milk Of Magntariq Liq) 30 ml Q12H PRN PO 10/05/16 22:00 (Senokot) 17.2 mg Q12H PRN PO 10/05/16 22:00 (Dulcolax Supp) 10 mg DAILY PRN RECTAL 10/05/16 22:00 Lactulose 30 ml 30 ml DAILY PRN PO 10/05/16 22:00 Multivitamins 10 ml/Folic Acid 1 mg/Sodium Chloride 510.2 ml @ 125 mls/hr Q24H IV 10/05/16 22:00 10/10/16 21:59 10/06/16 20:39 (Thiamine Inj/NS Inj) 101 ml @ 100 mls/hr Q24H IV 10/05/16 22:00 10/08/16 21:59 10/06/16 20:38 (Vitamin B1) 100 mg DAILY PO 10/09/16 09:00 (Romazicon Inj) 0.2 mg Q1M PRN IV PUSH 10/05/16 22:00 (Ativan) 1 mg Q4H PRN PO 10/05/16 22:00 (Ativan Inj) 1 mg Q4H PRN IV PUSH 10/05/16 22:00 (Ativan) 2 mg Q2H PRN PO 10/05/16 22:00 (Ativan Inj) 2 mg Q2H PRN IV PUSH 10/05/16 22:00 (Ativan Inj) 2 mg Q1H PRN IV PUSH 10/05/16 22:00 (Ativan Inj) 2 mg Q15M PRN IV PUSH 10/05/16 22:00 (Haldol Inj) 2 mg Q15M PRN IM 10/05/16 22:00 (Morphine Inj) 2 mg Q3H PRN IV 10/06/16 10:00 (Morphine Inj) 4 mg Q3H PRN IV 10/06/16 10:00 10/06/16 09:37 (Percocet 10-325 Mg) 1 tab Q4H PRN PO 10/06/16 09:15 10/07/16 05:24 Miscellaneous Information ALL NURSING DEPARTME... UNSCH PRN .XX 10/06/16 18:45 10/07/16 18:44 A/P Assessment and Plan 41-year-old male status post trauma secondary to fall of his left face with zygomatic fracture. Left zygomatic fracture Status post ORIF of Left Zygomatic Arch fracture on September with Diagnosis of Left Zygomatic Arch fracture. Syncope Suspected to be secondary to substance abuse Assessment ambulation instability postop IV hydration Nicotine dependence NicoDerm Alcohol abuse Elizabeth continue Multivitamin Thiamine Folic acid Follow for DTs Polysubstance abuse strongly recommended to stop this behavior. DVT prophylaxis SCDs secondary to bleed risk Discharge Planning once cleared by maxillofacial payroll and benefits specialist. Jermaine Amezquita MD Oct 07, 2016 09:14
[2016-10-07] MEDS: DOCUSATE SODIUM 50 MG/SENNA 8.6 MG TAB PO SCH ×2 (09:19→20:47)
--- NOTE | 2016-10-07 14:12 | MP ---
cc: SARAIARTEMIO DMD DATE OF SURGERY: 10/06/2016 PREOPERATIVE DIAGNOSIS Left zygomatic arch fracture. POSTOPERATIVE DIAGNOSIS Left zygomatic arch fracture. PROCEDURE Open reduction of the left zygomatic arch fracture. ANESTHESIA General; also local 2% lidocaine with 1:100,000 epinephrine approximately 3 cc, 0.5% Marcaine with 1:200,000 epinephrine approximately 2 cc at the end of the procedure. SURGEON Dr. Ivan SCHOOL CHILD CARE ATTENDANT OR Staff. ESTIMATED BLOOD LOSS Minimal. COMPLICATIONS None. DISPOSITION The patient tolerated the procedure well, was extubated and taken to the PACU. INDICATION FOR PROCEDURE This is a 41-year-old male who yesterday had a syncopal episode and fell hitting the left side of his face/cheek on a curb. It resulted in him having pain into that side and restriction in opening and closing. He also has a depression noted on the left side of the face. In order to restore form and function it is necessary the patient undergo open reduction of the left zygomatic arch fracture. The benefits, risks, indication for the procedure, the procedure in detail and the options of no treatment were discussed with this patient. The risks are not limited to post-op pain, infection, bleeding, damage to the adjacent soft tissue, hard tissue, anesthesia complications, further surgeries as required, cosmetic defect. All questions and concerns were addressed. Consent is signed in the chart. PROCEDURE IN DETAIL The patient was met preoperatively. The left side of the face was marked. All questions and concerns were addressed. The patient was taken to operating room #9 and placed on the table in supine position. He underwent oral intubation. Eyes were taped shut. All pressure points were padded. At this time a timeout was taken to identify the patient, the site, the procedure and the surgeon, and all were in agreement. Betadine prep was done on the left side of the face. I went to the sink to scrub and came back wearing sterile attire. The patient was draped in normal sterile fashion. A bite block was placed gently in the right side of the mouth. The back of the throat was suctioned. A moistened Ray-Violette was used as a throat pack. Peridex mouth rinse was done in the mouth. 2% lidocaine with 1:100,000 epinephrine was injected in the left maxillary vestibule region. A Bovie was used to make an incision in the region of the left maxillary molar to the region of the left canine region. Stensen's duct was noted and kept away from and marked with a marking pen. A periosteal elevator was used to go at this point to the lateral wall of the maxillary sinus going posterior towards the buttress underneath the periosteum and went posteriorly until I encountered the region of the arch. An instrument was used to pop the arch back into position. There was nice good smooth conformity of the arch that I could feel at this point. You could see the reduction of the depression on the left side of the face. Once this was done the site was then irrigated again with Peridex solution. The site was closed with 3-0 chromic suture. The back of the throat was suctioned and the throat pack was removed. The bite block was removed. A finger splint was contoured into position and placed on the left side of the face over the region of the arch and attached with tape to just help protect the reduction. Note, the patient had generalized poor dentition and decay. The patient has been counseled on this. All sponge and needle counts were accounted for. Artemio Ivan DMD PRINT LINE FEEDER/BT /6:07 PM /2:00 PM
--- NOTE | 2016-10-07 16:45 | HHI.PR ---
Subjective Remarks POD 1 s/p open reduction of left zygomatic arch repair pt seen and examined , AAOx3, NAD tolerating po, reports some residual soreness left face Objective Vital Signs Date Time Temp Pulse Resp B/P Pulse Ox O2 Delivery O2 Flow Rate FiO2 10/07/16 08:02 97 21 10/07/16 08:00 95.8 50 16 144/83 99 10/07/16 04:00 96.6 53 18 108/67 99 10/07/16 00:00 97.0 52 18 116/69 98 10/06/16 21:37 98 Nasal Cannula 4.00 10/06/16 20:00 96.0 66 18 147/78 97 10/06/16 18:30 98.2 53 14 136/71 100 Nasal Cannula 2 10/06/16 18:15 57 14 158/85 100 Nasal Cannula 3 10/06/16 18:05 98.2 60 14 154/87 100 Nasal Cannula 4 I/O 10/06/16 10/06/16 10/06/16 10/07/16 10/07/16 10/07/16 07:00 15:00 23:00 07:00 15:00 23:00 Intake Total 496 ml 2300 ml 1000 ml Output Total 1000 ml 1210 ml 700 ml Balance -504 ml 1090 ml 300 ml Intake Oral 0 ml 1600 ml 1000 ml IV Total 496 ml Other 700 ml Output Urine Total 1000 ml 1200 ml 700 ml Estimated Blood Loss 10 ml # Bowel Movements 0 1 1 Result Diagram: 10/07/16 0528 10/07/16 0528 Procedures Objective Remarks reduction of left facial edema splint in place increase in range of movement of mouth/mandible - guarding against discomfort wound margins well approximated, sutures intact, hemostatic no gross cosmetic defect Assessment and Plan Assessment and Plan POD 1 s/p open reduction of left zygomatic arch fracture ok to d/c to home from oms standpoint f/up dr ivan 1 week [facility], keep splint on left face x 48 hours warm compress left face 20 min on 20 min off mechanically soft diet no strenuous activity/exercised Kyle Ivan DMD Oct 07, 2016 16:45
[2016-10-07] MEDS: THIAMINE INJ 100 MG in SODIUM CHLORIDE 0.9% INJ 100 ML IV SCH (22:04)
[2016-10-07] MEDS: MULTIVITAMIN INJ 10 ML, FOLIC ACID INJ 1 MG in SODIUM CHLORID 0.9% 500 ML INJ 500 ML IV SCH (22:04)
[2016-10-08 00:45] VITALS: BP 119/81; PULSE 59; RESP 17; TEMP 97.4; O2SAT 98
[2016-10-08] MEDS: oxyCODONE/ACETAMINOPHEN 10 MG/325 MG TAB PO PRN ×2 (02:23→07:43)
[2016-10-08 04:08] VITALS: BP 97/54; PULSE 49; RESP 18; TEMP 97.3; O2SAT 95
[2016-10-08 08:00] VITALS: BP 104/69; PULSE 75; RESP 18; TEMP 96.9; O2SAT 98
--- NOTE | 2016-10-08 08:42 | HHI.PR ---
Subjective Remarks This is a pleasant 41 y/o Male with alcohol abuse, Tobacco dependence, Cocaine abuse, brought to ER after episode of syncope and Head trauma, he had sudden onset of dizziness/lightheadedness followed by acute syncopal event, +head injury on parking block. No seizure activity reported. CT Head/C Spine with no acute findings. CT Maxillofacial with comminuted and buccal/depressed acute fracture of the left zygomatic arch. CXR/ CT Chest/Abd/Pelvis w/ no acute findings. Status post ORIF of Left Zygomatic Arch fracture on September with Diagnosis of Left Zygomatic Arch fracture. Status post maxillofacial Surgery evaluation with diagnosis of Open reduction of left zygomatic arch fracture, okay to discharge follow up with Doctor Ivan in one week at [facility] phone number [phone] keep splint on left face for 48 hours, warm compress left face 20 min on 20 min off, mechanical soft diet, No strenuous activity exercise. Objective Vital Signs Date Time Temp Pulse Resp B/P Pulse Ox O2 Delivery O2 Flow Rate FiO2 10/08/16 04:08 97.3 49 18 97/54 95 10/08/16 00:45 97.4 59 17 119/81 98 10/07/16 20:15 96.8 57 16 121/71 97 10/07/16 16:00 96.0 50 14 122/88 98 10/07/16 12:00 95.7 59 18 118/83 99 I/O 10/07/16 10/07/16 10/07/16 10/08/16 10/08/16 10/08/16 07:00 15:00 23:00 07:00 15:00 23:00 Intake Total 1000 ml 1440 ml 480 ml 480 ml Output Total 700 ml 1700 ml 550 ml 350 ml Balance 300 ml -260 ml -70 ml 130 ml Intake Oral 1000 ml 1440 ml 480 ml 480 ml Output Urine Total 700 ml 1700 ml 550 ml 350 ml # Voids 2 # Bowel Movements 1 0 0 Result Diagram: 10/07/16 0528 10/07/16 0528 Imaging Last Impressions Maxillofacial CT 10/05/161952 Signed Impressions: Service Date/Time: Wednesday, October 05, 2016 20:22 - CONCLUSION: Comminuted and buckled/depressed acute fracture of the left zygomatic arch as described above. Jr Colby MD Head CT 10/05/161952 Signed Impressions: Service Date/Time: Wednesday, October 05, 2016 20:22 - CONCLUSION: Negative noncontrast head CT. Jr Colby MD Chest X-Ray 10/05/161952 Signed Impressions: Service Date/Time: Wednesday, October 05, 2016 19:53 - CONCLUSION: No acute abnormality demonstrated. Jr Colby MD Chest CT 10/05/161952 Signed Impressions: Service Date/Time: Wednesday, October 05, 2016 20:29 - CONCLUSION: No acute abnormality. Jr Colby MD Cervical Spine CT 10/05/161952 Signed Impressions: Service Date/Time: Wednesday, October 05, 2016 20:22 - CONCLUSION: No fracture, subluxation or other acute abnormality seen of the cervical spine. Jr Colby MD Abdomen/Pelvis CT 10/05/161952 Signed Impressions: Service Date/Time: Wednesday, October 05, 2016 20:29 - CONCLUSION: No acute abnormality. Jr Colby MD Procedures Zygomatic Arch ORIF. Other Results Laboratory Tests Test 10/05/16 10/06/16 10/06/16 10/07/16 19:55 04:30 09:49 05:28 Bedside Hemoglobin 15.3 G/DL Bedside Hematocrit 45.0 % Prothrombin Time 10.2 SEC Prothromb Time International 0.9 RATIO Ratio Activated Partial 26.5 SEC Thromboplast Time Bedside Sodium 142 MMOL/L Bedside Potassium 4.5 MMOL/L Bedside Chloride 105 MMOL/L Bedside Blood Urea Nitrogen 15 MG/DL Bedside Creatinine 1.0 MG/DL Bedside Glucose 102 MG/DL Magnesium Level 2.5 MG/DL Ethyl Alcohol Level 141 MG/DL Blood Type O POSITIVE Antibody Screen NEGATIVE Blood Bank Comment Troponin I LESS THAN 0.02 NG/ML Urine Opiates Screen POS Urine Barbiturates Screen NEG Urine Amphetamines Screen NEG Urine Benzodiazepines Screen NEG Urine Cocaine Screen POS Urine Cannabinoids Screen NEG Neutrophils (%) (Auto) 80.8 % Lymphocytes (%) (Auto) 16.4 % Monocytes (%) (Auto) 2.6 % Eosinophils (%) (Auto) 0.0 % Basophils (%) (Auto) 0.2 % Neutrophils # (Auto) 5.2 TH/MM3 Lymphocytes # (Auto) 1.1 TH/MM3 Monocytes # (Auto) 0.2 TH/MM3 Eosinophils # (Auto) 0.0 TH/MM3 Basophils # (Auto) 0.0 TH/MM3 CBC Comment DIFF FINAL Differential Comment Total Bilirubin 0.5 MG/DL Aspartate Amino Transf 22 U/L (AST/SGOT) Alanine Aminotransferase 36 U/L (ALT/SGPT) Alkaline Phosphatase 86 U/L Total Protein 6.8 GM/DL Albumin 3.4 GM/DL White Blood Count 10.8 TH/MM3 Red Blood Count 4.25 MIL/MM3 Hemoglobin 13.7 GM/DL Hematocrit 39.7 % Mean Corpuscular Volume 93.3 FL Mean Corpuscular Hemoglobin 32.3 PG Mean Corpuscular Hemoglobin 34.6 % Concent Red Cell Distribution Width 12.9 % Platelet Count 208 TH/MM3 Mean Platelet Volume 9.6 FL Sodium Level 141 MEQ/L Potassium Level 4.2 MEQ/L Chloride Level 109 MEQ/L Carbon Dioxide Level 24.9 MEQ/L Anion Gap 7 MEQ/L Blood Urea Nitrogen 15 MG/DL Creatinine 0.67 MG/DL Estimat Glomerular Filtration 131 ML/MIN Rate Random Glucose 153 MG/DL Calcium Level 7.9 MG/DL Objective Remarks GENERAL: NAD, A&Ox3 HEAD: Normocephalic. Swelling of left side of face NECK: Supple, trachea midline. No lymphadenopathy. EYES: No scleral icterus. No injection or drainage. CARDIOVASCULAR: Regular rate and rhythm without murmurs, gallops, or rubs. RESPIRATORY: Breath sounds equal bilaterally. No accessory muscle use. GASTROINTESTINAL: Abdomen soft, non-tender, nondistended. MUSCULOSKELETAL: No cyanosis, or edema. SKIN: Warm and dry. NEURO: No focal neurological deficitis. Medications and IVs Current Medications Medications (Trade) Dose Ordered Sig/Maurice Route Start Time Stop Time Status Last Admin (NS 1000 ml Inj) 1,000 ml @ 100 mls/hr Q10H IV 10/05/16 21:59 10/05/16 22:29 (NS Flush) 2 ml UNSCH PRN IV FLUSH 10/05/16 22:00 (NS Flush) 2 ml BID IV FLUSH 10/06/16 09:00 10/07/16 20:48 (Zofran Inj) 4 mg Q6H PRN IVP 10/05/16 22:00 10/07/16 22:08 (Rebecca-Colace) 1 tab BID PO 10/06/16 09:00 10/07/16 20:47 (Milk Of Magntariq Liq) 30 ml Q12H PRN PO 10/05/16 22:00 (Senokot) 17.2 mg Q12H PRN PO 10/05/16 22:00 (Dulcolax Supp) 10 mg DAILY PRN RECTAL 10/05/16 22:00 Lactulose 30 ml 30 ml DAILY PRN PO 10/05/16 22:00 Multivitamins 10 ml/Folic Acid 1 mg/Sodium Chloride 510.2 ml @ 125 mls/hr Q24H IV 10/05/16 22:00 10/10/16 21:59 10/07/16 22:04 (Thiamine Inj/NS Inj) 101 ml @ 100 mls/hr Q24H IV 10/05/16 22:00 10/08/16 21:59 10/07/16 22:04 (Vitamin B1) 100 mg DAILY PO 10/09/16 09:00 (Romazicon Inj) 0.2 mg Q1M PRN IV PUSH 10/05/16 22:00 (Ativan) 1 mg Q4H PRN PO 10/05/16 22:00 (Ativan Inj) 1 mg Q4H PRN IV PUSH 10/05/16 22:00 (Ativan) 2 mg Q2H PRN PO 10/05/16 22:00 (Ativan Inj) 2 mg Q2H PRN IV PUSH 10/05/16 22:00 (Ativan Inj) 2 mg Q1H PRN IV PUSH 10/05/16 22:00 (Ativan Inj) 2 mg Q15M PRN IV PUSH 10/05/16 22:00 (Haldol Inj) 2 mg Q15M PRN IM 10/05/16 22:00 (Morphine Inj) 2 mg Q3H PRN IV 10/06/16 10:00 (Morphine Inj) 4 mg Q3H PRN IV 10/06/16 10:00 10/06/16 09:37 (Percocet 10-325 Mg) 1 tab Q4H PRN PO 10/06/16 09:15 10/08/16 07:43 A/P Assessment and Plan 41-year-old male status post trauma secondary to fall of his left face with zygomatic fracture. Left zygomatic fracture Status post ORIF of Left Zygomatic Arch fracture on September with Diagnosis of Left Zygomatic Arch fracture. Syncope Suspected to be secondary to substance abuse Assessment ambulation instability postop IV hydration Nicotine dependence NicoDerm, strongly recommended to stop smoking. Alcohol abuse strongly recommended to stop drinking alcohol. Sewall continue Multivitamin Thiamine Folic acid Follow for DTs Polysubstance abuse strongly recommended to stop behavior. Obesity strongly recommended diet and exercise. DVT prophylaxis SCDs secondary to bleed risk Discharge Planning discharge Home. Jermaine Amezquita MD Oct 08, 2016 08:42
[2016-10-08] MEDS: SODIUM CHLORIDE 0.9% FLUSH 10 ML FLUSH IV FLUSH SCH (09:00)
[2016-10-08] MEDS ORDERED: GNP100TA3 PO (09:04)
[2016-10-08] MEDS ORDERED: OXYC1TAB36 PO (09:04)
[2016-10-08] MEDS ORDERED: FOLI1TAB6 PO (09:04)
[2016-10-08] MEDS: DOCUSATE SODIUM 50 MG/SENNA 8.6 MG TAB PO SCH (09:13)
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
[2016-10-08 09:51] VITALS: O2SAT 95
[2016-10-09] MEDS ORDERED: THIAMINE HCL 100 MG TAB PO SCH (09:00)
== END 2016-10-08 12:32 | disposition home or self-care (01) | DRG 132 ==
LOC: NEPC 19:41 → NEDA 22:05 → N06B 23:12 → N06A 10-06 10:33
PROVIDERS: ADMIT Internal Medicine; ATTEND Internal Medicine
PROC: 0NSN04Z Reposition Left Zygomatic Bone with Internal Fixation Device, Open Approach (ICD-10-PCS; principal; 2016-10-06 17:02)
DX: S02.40FA Zygomatic fracture, left side, initial encounter for closed fracture (principal); F14.10 Cocaine abuse, uncomplicated; F17.210 Nicotine dependence, cigarettes, uncomplicated; Y92.89 Other specified places as the place of occurrence of the external cause; W18.30XA Fall on same level, unspecified, initial encounter; F10.10 Alcohol abuse, uncomplicated; E86.0 Dehydration; F10.129 Alcohol abuse with intoxication, unspecified; Y90.6 Blood alcohol level of 120-199 mg/100 ml
CPT/HCPCS: 70450; 70486; 71010; 71260; 72125; 74177; 80048; 80053; 80307; 82435; 82565; 82947; 82948; 83735; 84132; 84295; 84484; 84520; 85025; 85027; 85610; 85730; 86850; 86900; 86901; 90471; 90715; 93005; 96365; 96375; J0131; J0690; J1040; J1100; J1885; J2250; J2270; J2405; J2930; J3010; J3411; J7030; J7040; J7120; L0150; Q9967

== ENCOUNTER 2017-03-19 01:57 | Emergency (ER) | payer OTHER ==
[~2017-03-19] VITALS: Ht 188 cm; Wt 110.0 kg
[~2017-03-19 01:57] MED LIST: FOLI1TAB6 PO; OXYC1TAB36 PO; THIA100 PO
[2017-03-19 02:06] VITALS: BP 122/66; PULSE 98; RESP 18; TEMP 98.1; O2SAT 98
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
== END 2017-03-19 03:39 ==
LOC: NEPD 01:57
DX: S00.33XA Contusion of nose, initial encounter (principal); M19.90 Unspecified osteoarthritis, unspecified site; F17.200 Nicotine dependence, unspecified, uncomplicated; Y04.0XXA Assault by unarmed brawl or fight, initial encounter
CPT/HCPCS: 70140; 99283